=== PATIENT | male | born 1950 | race Caucasian/White ===

== ENCOUNTER → 2021-05-04 | Outpatient (CLI) | payer MEDICARE ==
--- NOTE | 2021-05-04 16:11 | US ---
EXAMINATION TYPE: US thyroid st tissue head/neck DATE OF EXAM: 05/04/2021 COMPARISON: NONE CLINICAL HISTORY: E03.9 HYPOTHYROID. Hypothyroid with superintendent terminal use of thyroid medication, with no hi story of thyroid surgeries or biopsies GLAND SIZE: Right Lobe: 2.7 x 1.8 x 1.4 cm Overall Parenchyma: heterogenous Left Lobe: 2.9 x 1.3 x 1.1 cm Overall Parenchyma: heterogeneous Isthmus Thickness: Limited NODULES RIGHT: # of nodules measured on right: 0 LEFT: # of nodules measured on left: 0 ISTHMUS: # of nodules measured in the isthmus: 0 Bilateral neck scanned, no evidence of lymphadenopathy. Limited exam IMPRESSION: 1. No suspicious thyroid nodules.
== END | disposition home or self-care (01) ==
LOC: RADUSWWP 14:45
PROVIDERS: ATTEND Internal Medicine
DX: E03.9 Hypothyroidism, unspecified (principal)
CPT/HCPCS: 76536

== ENCOUNTER 2023-02-01 23:52 | Observation (INO) | payer MEDICARE ==
[2023-02-02] MEDS ORDERED: NITROGLYCERIN SL TABS 0.4 MG TAB SUBLINGUAL STA (00:23)
[2023-02-02] MEDS ORDERED: NITROGLYCERIN OINT 1 INCH/GM PACKET TOPICAL STA (00:23)
[2023-02-02] MEDS ORDERED: ASPIRIN 81 MG PO STA (00:23)
[2023-02-02 00:39] LABS: ALT 89 U/L (4-49); AST 97 U/L (17-59); African American GFR (CKD) 71 (>60 ml/min/1.73 sqM); Albumin 3.7 g/dL (3.5-5.0); Alkaline Phosphatase 115 U/L (38-126); Anion Gap 9 mmol/L; Blood Urea Nitrogen 22 mg/dL (9-20); Calcium 9.3 mg/dL (8.4-10.2); Carbon Dioxide 21 mmol/L (22-30); Chloride 109 mmol/L (98-107); Glucose 133 mg/dL (74-99); Magnesium 1.9 mg/dL (1.6-2.3); Non-African American GFR(CKD) 61 (>60 ml/min/1.73 sqM); Potassium 3.8 mmol/L (3.5-5.1); Sodium 139 mmol/L (137-145); Total Bilirubin 1.2 mg/dL (0.2-1.3); Total Protein 7.3 g/dL (6.3-8.2)
[2023-02-02 00:45] LABS: Prothrombin Time 10.7 sec (9.0-12.0)
[2023-02-02 00:47] LABS: NT-Pro-B-Type Natriuretic Pept 10400 pg/mL
[2023-02-02 00:48] LABS: Basophils % (A) 0 %; Eosinophils # (A) 0.4 k/uL (0-0.7); Eosinophils % (A) 3 %; HGB 15.1 gm/dL (13.0-17.5); Lymphocytes # (A) 1.2 k/uL (1.0-4.8); Lymphocytes % (A) 10 %; MCHC 32.8 g/dL (31.0-37.0); MCV 97.3 fL (80.0-100.0); Mean Platelet Volume 8.7; Monocytes # (A) 0.7 k/uL (0-1.0); Monocytes % (A) 6 %; Neutrophils # (A) 9.1 k/uL (1.3-7.7); Neutrophils % (A) 79 %; Platelet Count 239 k/uL (150-450); RBC 4.73 m/uL (4.30-5.90); RDW 14.3 % (11.5-15.5); WBC 11.4 k/uL (3.8-10.6)
[2023-02-02] MEDS ORDERED: FUROSEMIDE 10 MG/ML 4 ML VIAL IV STA (01:00)
[2023-02-02] MEDS ORDERED: FUROSEMIDE 10 MG/ML 4 ML VIAL IV SCH ×2 (04:15→17:00)
--- NOTE | 2023-02-02 04:16 | P.HPIM ---
History of Present Illness H&P Date: 02/02/23 Patient is a 72-year-old male with a PMH of CHF (unknown type), status post AICD placement, A. fib not on anticoagulation (unknown reason), marijuana abuse, hypertension, and hyperlipidemia who presents to the emergency room with complaints of shortness of breath and diaphoresis. Patient reports that a friend of his recently suddenly from an [place]. He reports that throughout the day today, he felt chest congestion with mild shortness of breath and cough productive of whitish phlegm but then developed an episode of vague chest discomfort and diaphoresis, which prompted him to come to the emergency room. Reports that the pain was nonradiating with no alleviating or exacerbating features. Patient reports feeling significantly better and essentially back at his baseline at the time of interview. Upon arrival, the patient's vitals were BP 197/122 with pulse 111. Chest x-ray as reviewed with the ED provider revealed pulmonary venous congestion and cardiomegaly. EKG revealed A. fib at 99 bpm with left axis deviation and left bundle branch block as reviewed by me. No prior EKGs available for comparison. Laboratory evaluation was remarkable for troponin 0.037, proBNP 10,400, AST 97, ALT 89, and leukocytosis of 11.4. ED documentation reviewed and case discussed with ED provider. Review of systems: Pertinent positives and negatives as discussed in HPI, a complete review of systems was performed and all other systems are negative. Physical examination: Vital signs reviewed General: non toxic, no distress, appears at stated age, obese Derm: no unusual rashes/lesions, warm Head: atraumatic, normocephalic, symmetric Eyes: EOMI, no lid lag, anicteric sclera, pupils equal round reactive to light ENT: Nose and ears atraumatic Neck: No cervical lymphadenopathy, trachea midline, supple Mouth: no lip lesion, mucus membranes moist Cardiovascular: S1S2 reg, no murmur, positive dorsalis pedis pulse bilateral, no edema Lungs: Mild basilar rales, no accessory muscle use Abdominal: soft, nontender to palpation, no guarding Ext: muscle strength 5 out of 5 in all 4 extremities grossly, no gross muscle atrophy, no contractures, Neuro: CN II-XI grossly intact, no gross focal neuro deficits Psych: Alert, oriented, appropriate affect Assessment: Acute CHF exacerbation Elevated troponin, likely due to acute CHF Abnormal LFTs Chronic conditions: A. fib, hypertension, hyperlipidemia Imaging: Upon arrival, the patient's vitals were BP 197/122 with pulse 111. Chest x-ray as reviewed with the ED provider revealed pulmonary venous congestion and cardiomegaly. Data Review: Laboratory evaluation was remarkable for troponin 0.037, proBNP 10,400, AST 97, ALT 89, and leukocytosis of 11.4. Plan: Continue with Lasix 40 mg IV every 12 hourly Cardiology consult Cardiac monitoring Trend troponin Intake/output, daily weights Monitor LFTs Echocardiogram Resume home medications once reconciled S/p ASA 324 mg in ED DVT prophylaxis: Lovenox subcu The patient is admitted with an anticipated greater than 2 midnight stay for evaluation of CHF CODE STATUS: Full Code Discussed with: Patient Anticipated discharge place: Home Past Medical History Past Medical History: Hyperlipidemia, Hypertension, Myocardial Infarction ([place]) History of Any Multi-Drug Resistant Organisms: None Reported Past Surgical History: Coronary Bypass/CABG, Heart Catheterization Past Psychological History: No Psychological Hx Reported Smoking Status: Never smoker Past Alcohol Use History: None Reported Past Drug Use History: Marijuana Medications and Allergies Allergies Allergy/AdvReac Type Severity Reaction Status Date / Time No Known Allergies Allergy Verified 02/01/23 23:56 Physical Exam Vitals: Vital Signs Temp Pulse Resp BP Pulse Ox 02/02/23 00:58 83 20 138/85 92 L 02/01/23 23:53 97.8 F 111 H 20 197/122 97 Intake and Output 02/01/23 02/01/23 02/02/23 14:59 22:59 06:59 Other: Weight 100.698 kg Results CBC & Chem 7: 02/02/23 00:22 02/02/23 00:22 Labs: Abnormal Lab Results - Last 24 Hours (Table) 02/02/23 02/02/23 02/02/23 Range/Units 00:22 00:22 00:22 WBC 11.4 H (3.8-10.6) k/uL Neutrophils # 9.1 H (1.3-7.7) k/uL Chloride 109 H (98-107) mmol/L Carbon Dioxide 21 L (22-30) mmol/L BUN 22 H (9-20) mg/dL Glucose 133 H (74-99) mg/dL AST 97 H (17-59) U/L ALT 89 H (4-49) U/L Troponin I 0.037 H* (0.000-0.034) ng/mL
--- NOTE | 2023-02-02 04:46 | XR ---
EXAM: XR Chest, 1 View CLINICAL HISTORY: Dyspnea. TECHNIQUE: Frontal view of the chest. COMPARISON: No relevant prior studies available. FINDINGS: Status post sternotomy and CABG. Heart is enlarged. Diffuse interstitial prominence compatible with CHF. Small left pleural effusion. No pneumothorax. Bones are osteopenic. IMPRESSION: Cardiomegaly. CHF. Small left pleural effusion.
--- NOTE | 2023-02-02 05:57 | ED ---
SOB HPI - General Chief Complaint: Chest Pain Stated Complaint: SOB, Chest pain Time Seen by Provider: 02/02/23 00:14 Source: patient Mode of arrival: ambulatory Limitations: no limitations - History of Present Illness Initial Comments: This patient is 72-year-old man who presents evaluation of shortness of breath. The patient states that the symptoms had come on while he was at rest. The patient was watching television. He noticed that he was starting to become progressively more short of breath. He also felt like his chest was tight. At one point he was sweaty. The patient was concerned because he had severe shortness of breath associated with previous heart attack. He states that after he had been placed on the oxygen he is feeling much better. Patient denies fever or chills. No productive cough. No shekhar chest pain. No vomiting MD Complaint: shortness of breath Onset/Timin -: hour(s) Consistency: other (Improving) Improves With: nothing Worsens With: lying flat Associated Symptoms: orthopnea, nausea/vomiting - Related Data Home Oxygen Therapy: No Home Medications Medication Instructions Recorded Confirmed Amiodarone [Cordarone] 100 mg PO DAILY 02/02/23 02/02/23 Aspirin 81 mg PO DAILY 02/02/23 02/02/23 Clopidogrel [Plavix] 75 mg PO DAILY 02/02/23 02/02/23 Colchicine [Colcrys] 0.6 mg PO DAILY 02/02/23 02/02/23 Furosemide [Lasix] 40 mg PO BID 02/02/23 02/02/23 Levothyroxine Sodium [Synthroid] 175 mcg PO DAILY 02/02/23 02/02/23 busPIRone HCl [Buspar] 5 mg PO BID 02/02/23 02/02/23 Previous Rx's Medication Instructions Recorded carvediloL [Coreg] 6.25 mg PO BID-W/MEALS #60 tab 02/03/23 lisinopriL [Zestril] 10 mg PO BID #60 tab 02/03/23 Allergies Allergy/AdvReac Type Severity Reaction Status Date / Time No Known Allergies Allergy Verified 02/02/23 07:03 Review of Systems ROS Statement: Those systems with pertinent positive or pertinent negative responses have been documented in the HPI. ROS Other: All systems not noted in ROS Statement are negative. Constitutional: Denies: fever, chills, weakness ENT: Denies: congestion Respiratory: Reports: dyspnea. Denies: wheezes, hemoptysis Cardiovascular: Reports: palpitations, orthopnea. Denies: chest pain, edema, syncope Gastrointestinal: Reports: nausea. Denies: abdominal pain, vomiting, diarrhea, melena, hematochezia Genitourinary: Denies: dysuria, hematuria Musculoskeletal: Denies: back pain Skin: Denies: rash Neurological: Denies: headache, weakness Psychiatric: Reports: anxiety Past Medical History Past Medical History: Hyperlipidemia, Hypertension, Myocardial Infarction ([place]) History of Any Multi-Drug Resistant Organisms: None Reported Past Surgical History: Coronary Bypass/CABG, Heart Catheterization Past Psychological History: No Psychological Hx Reported Smoking Status: Never smoker Past Alcohol Use History: None Reported Past Drug Use History: Marijuana General Exam Limitations: no limitations General appearance: alert, in no apparent distress Head exam: Present: atraumatic, normocephalic Eye exam: Present: normal appearance. Absent: scleral icterus, conjunctival injection Neck exam: Present: normal inspection Respiratory exam: Present: wheezes, rales. Absent: rhonchi, stridor, accessory muscle use Cardiovascular Exam: Present: tachycardia, irregular rhythm, normal heart sounds, systolic murmur. Absent: diastolic murmur, rubs, gallop GI/Abdominal exam: Present: soft. Absent: distended, tenderness, guarding, rebound, rigid, mass Extremities exam: Present: normal inspection, normal capillary refill. Absent: pedal edema, calf tenderness Back exam: Present: normal inspection. Absent: CVA tenderness (R), CVA tenderness (L) Neurological exam: Present: alert Skin exam: Present: warm, dry, intact, normal color. Absent: rash Course Vital Signs 02/01/23 02/02/23 02/02/23 23:53 00:58 01:10 Temperature 97.8 F Pulse Rate 111 H 83 83 Pulse Rate [ [employer] ] Pulse Rate [ Pulse Oximetery ] Respiratory 20 20 33 H Rate Blood Pressure 197/122 138/85 125/96 Blood Pressure [Left Arm] Blood Pressure [Right Radial Artery] O2 Sat by Pulse 97 92 L 92 L Oximetry 02/02/23 02/02/23 02/02/23 01:40 02:10 03:10 Temperature Pulse Rate 74 75 76 Pulse Rate [ [employer] ] Pulse Rate [ Pulse Oximetery ] Respiratory 18 17 23 Rate Blood Pressure 135/106 148/91 151/115 Blood Pressure [Left Arm] Blood Pressure [Right Radial Artery] O2 Sat by Pulse 94 L 95 96 Oximetry 02/02/23 02/02/23 02/02/23 03:40 04:10 04:40 Temperature Pulse Rate 72 72 77 Pulse Rate [ [employer] ] Pulse Rate [ Pulse Oximetery ] Respiratory 20 18 14 Rate Blood Pressure 140/92 159/147 147/100 Blood Pressure [Left Arm] Blood Pressure [Right Radial Artery] O2 Sat by Pulse 98 99 98 Oximetry 02/02/23 02/02/23 02/02/23 04:50 05:00 05:20 Temperature Pulse Rate 71 78 72 Pulse Rate [ [employer] ] Pulse Rate [ Pulse Oximetery ] Respiratory 18 15 20 Rate Blood Pressure 161/136 165/102 150/97 Blood Pressure [Left Arm] Blood Pressure [Right Radial Artery] O2 Sat by Pulse 98 96 98 Oximetry 02/02/23 02/02/23 02/02/23 05:40 05:49 06:00 Temperature Pulse Rate 76 80 71 Pulse Rate [ [employer] ] Pulse Rate [ Pulse Oximetery ] Respiratory 15 19 12 Rate Blood Pressure 138/101 147/127 147/127 Blood Pressure [Left Arm] Blood Pressure [Right Radial Artery] O2 Sat by Pulse 98 98 99 Oximetry 02/02/23 02/02/23 02/02/23 06:20 08:00 11:17 Temperature 98.2 F Pulse Rate 71 Pulse Rate [ [employer] ] Pulse Rate [ 73 70 Pulse Oximetery ] Respiratory 20 20 18 Rate Blood Pressure 131/111 Blood Pressure 151/104 136/84 [Left Arm] Blood Pressure [Right Radial Artery] O2 Sat by Pulse 96 98 96 Oximetry 02/02/23 02/02/23 02/03/23 15:11 20:00 00:00 Temperature 98 F 97.9 F 98.3 F Pulse Rate Pulse Rate [ 98 85 [employer] ] Pulse Rate [ 80 98 85 Pulse Oximetery ] Respiratory 18 13 15 Rate Blood Pressure Blood Pressure 127/95 [Left Arm] Blood Pressure 125/88 132/100 [Right Radial Artery] O2 Sat by Pulse 96 97 96 Oximetry 02/03/23 02/03/23 02/03/23 04:00 08:31 09:10 Temperature Pulse Rate Pulse Rate [ 82 83 [employer] ] Pulse Rate [ 82 70 Pulse Oximetery ] Respiratory 17 17 Rate Blood Pressure Blood Pressure 174/101 137/88 [Left Arm] Blood Pressure 128/91 [Right Radial Artery] O2 Sat by Pulse 98 99 96 Oximetry Medical Decision Making - Medical Decision Making Patient is 72-year-old man coming to have evaluation for acute onset of dyspnea. On arrival his exam is consistent with congestive heart failure exacerbation/pulmonary edema. He is markedly hypertensive. The patient did have rapid improvement after being started on oxygen, nitrates, aspirin. He rapidly became asymptomatic. The chest x-ray does show congestive heart failure exacerbation as interpreted by myself. Was pt. sent in by a medical professional or institution (, PA, TELECOMMUNICATIONS ENGINEER, urgent care, hospital, or [facility]...) When possible be specific @ -[No] Did you speak to anyone other than the patient for history (EMS, parent, family, police, friend...)? What history was obtained from this source @ -[No] Did you review nursing and triage notes (agree or disagree)? Why? @ -[I reviewed and agree with nursing and triage notes] Were old charts reviewed (outside hosp., previous admission, EMS record, old EKG, old radiological studies, urgent care reports/EKG's, [facility] records)? Report findings @ -[No old charts were reviewed] Differential Diagnosis (chest pain, altered mental status, abdominal pain women, abdominal pain men, vaginal bleeding, weakness, fever, dyspnea, syncope, headache, dizziness, GI bleed, back pain, seizure, CVA, palpatations, mental health, musculoskeletal)? @ -[Differential Dyspnea: Coronary syndrome, arrhythmia, tamponade, asthma, COPD, pulmonary embolism, pneumonia, pneumothorax, pulmonary effusion, anaphylaxis, diabetic ketoacidosis, flailed chest, pulmonary contusion, diaphragmatic rupture, anemia, neuromuscular, this is not meant to be an all-inclusive list. EKG interpreted by me (3pts min.). @ -[I interpreted As above] X-rays interpreted by me (1pt min.). @ -[I interpreted as above CT interpreted by me (1pt min.). @ -[None done] U/S interpreted by me (1pt. min.). @ -[None done] What testing was considered but not performed or refused? (CT, X-rays, U/S, labs)? Why? @ -[None] What meds were considered but not given or refused? Why? @ -[None] Did you discuss the management of the patient with other professionals (professionals i.e. , PA, TELECOMMUNICATIONS ENGINEER, lab, RT, psych nurse, social media marketing specialist, appraiser, teacher, parking regulation enforcement officer, transplant case manager)? Give summary @ -[No] Was smoking cessation discussed for >3mins.? @ -[No] Was critical care preformed (if so, how long)? @ -[No] Were there social determinants of health that impacted care today? How? (Homelessness, low income, unemployed, alcoholism, drug addiction, transportat ion, low edu. Level, literacy, decrease access to med. care, nursing home, rehab)? @ -[No] Was there de-escalation of care discussed even if they declined (Discuss DNR or withdrawal of care, Hospice)? DNR status @ -[No] What co-morbidities impacted this encounter? (DM, HTN, Smoking, COPD, CAD, Cancer, CVA, ARF, Chemo, Hep., AIDS, mental health diagnosis, sleep apnea, morbid obesity)? @ -[None] Was patient admitted / discharged? Hospital course, mention meds given and route, prescriptions, significant lab abnormalities, going to OR and other pertinent info. @ -[Patient is admitted with CHF exacerbation to have further evaluation and treatment, including cardiology consultation Undiagnosed new problem with uncertain prognosis? @ -[No] Drug Therapy requiring intensive monitoring for toxicity (Heparin, Nitro, I nsulin, Cardizem)? @ -[No] Were any procedures done? @ -[No] Diagnosis/symptom? @ -[Acute exacerbation of CHF Elevated troponin I Acute, or Chronic, or Acute on Chronic? @ -[ Uncomplicated (without systemic symptoms) or Complicated (systemic symptoms)? @ -[Complicated Side effects of treatment? @ -[No] Exacerbation, Progression, or Severe Exacerbation? @ -[No] Poses a threat to life or bodily function? How? (Chest pain, [place], [place], pneumonia, PE, COPD, DKA, ARF, appy, cholecystitis, CVA, Diverticulitis, Homicidal, Suicidal, threat to staff... and all critical care pts) @ -[Yes untreated decompensated congestive heart failure could rapidly progress respiratory failure/ - Lab Data Result diagrams: 02/02/23 06:14 02/03/23 07:23 Lab Results 02/02/23 02/02/23 02/02/23 Range/Units 00:22 00:22 00:22 WBC 11.4 H (3.8-10.6) k/uL RBC 4.73 (4.30-5.90) m/uL Hgb 15.1 (13.0-17.5) gm/dL Hct 46.0 (39.0-53.0) % MCV 97.3 (80.0-100.0) fL MCH 32.0 (25.0-35.0) pg MCHC 32.8 (31.0-37.0) g/dL RDW 14.3 (11.5-15.5) % Plt Count 239 (150-450) k/uL MPV 8.7 Neutrophils % 79 % Lymphocytes % 10 % Monocytes % 6 % Eosinophils % 3 % Basophils % 0 % Neutrophils # 9.1 H (1.3-7.7) k/uL Lymphocytes # 1.2 (1.0-4.8) k/uL Monocytes # 0.7 (0-1.0) k/uL Eosinophils # 0.4 (0-0.7) k/uL Basophils # 0.0 (0-0.2) k/uL PT 10.7 (9.0-12.0) sec INR 1.0 (<1.2) APTT 26.0 (22.0-30.0) sec Sodium 139 (137-145) mmol/L Potassium 3.8 (3.5-5.1) mmol/L Chloride 109 H (98-107) mmol/L Carbon Dioxide 21 L (22-30) mmol/L Anion Gap 9 mmol/L BUN 22 H (9-20) mg/dL Creatinine 1.17 (0.66-1.25) mg/dL Est GFR (CKD-EPI)AfAm 71 (>60 ml/min/1.73 sqM) Est GFR (CKD-EPI)NonAf 61 (>60 ml/min/1.73 sqM) Glucose 133 H (74-99) mg/dL Plasma Lactic Acid Miguel (0.7-2.0) mmol/L Calcium 9.3 (8.4-10.2) mg/dL Magnesium 1.9 (1.6-2.3) mg/dL Total Bilirubin 1.2 (0.2-1.3) mg/dL AST 97 H (17-59) U/L ALT 89 H (4-49) U/L Alkaline Phosphatase 115 (38-126) U/L Troponin I (0.000-0.034) ng/mL NT-Pro-B Natriuret Pep 05363 pg/mL Total Protein 7.3 (6.3-8.2) g/dL Albumin 3.7 (3.5-5.0) g/dL 02/02/23 02/02/23 Range/Units 00:22 00:22 WBC (3.8-10.6) k/uL RBC (4.30-5.90) m/uL Hgb (13.0-17.5) gm/dL Hct (39.0-53.0) % MCV (80.0-100.0) fL MCH (25.0-35.0) pg MCHC (31.0-37.0) g/dL RDW (11.5-15.5) % Plt Count (150-450) k/uL MPV Neutrophils % % Lymphocytes % % Monocytes % % Eosinophils % % Basophils % % Neutrophils # (1.3-7.7) k/uL Lymphocytes # (1.0-4.8) k/uL Monocytes # (0-1.0) k/uL Eosinophils # (0-0.7) k/uL Basophils # (0-0.2) k/uL PT (9.0-12.0) sec INR (<1.2) APTT (22.0-30.0) sec Sodium (137-145) mmol/L Potassium (3.5-5.1) mmol/L Chloride (98-107) mmol/L Carbon Dioxide (22-30) mmol/L Anion Gap mmol/L BUN (9-20) mg/dL Creatinine (0.66-1.25) mg/dL Est GFR (CKD-EPI)AfAm (>60 ml/min/1.73 sqM) Est GFR (CKD-EPI)NonAf (>60 ml/min/1.73 sqM) Glucose (74-99) mg/dL Plasma Lactic Acid Miguel 1.2 (0.7-2.0) mmol/L Calcium (8.4-10.2) mg/dL Magnesium (1.6-2.3) mg/dL Total Bilirubin (0.2-1.3) mg/dL AST (17-59) U/L ALT (4-49) U/L Alkaline Phosphatase (38-126) U/L Troponin I 0.037 H* (0.000-0.034) ng/mL NT-Pro-B Natriuret Pep pg/mL Total Protein (6.3-8.2) g/dL Albumin (3.5-5.0) g/dL - EKG Data -: EKG Interpreted by Tx EKG shows normal: axis (Left axis deviation), intervals (Normal), QRS complexes ((Bundle-branch block pattern) Interpretation: other (Underlying rhythm appears to be atrial flutter fib. There are PVCs. The rate is 99 bpm) Disposition Clinical Impression: CHF (congestive heart failure), Hypertensive emergency Disposition: ADMITTED IP TO THIS HOSP Condition: Stable Is patient prescribed a controlled substance at d/c from ED?: No
[2023-02-02 06:30] LABS: HCT 50.6 % (39.0-53.0); HGB 16.5 gm/dL (13.0-17.5); MCH 31.6 pg (25.0-35.0); MCHC 32.7 g/dL (31.0-37.0); MCV 96.7 fL (80.0-100.0); Mean Platelet Volume 8.2; Platelet Count 274 k/uL (150-450); RBC 5.23 m/uL (4.30-5.90); WBC 8.1 k/uL (3.8-10.6)
[2023-02-02 06:39] LABS: ALT 99 U/L (4-49); AST 81 U/L (17-59); African American GFR (CKD) 81 (>60 ml/min/1.73 sqM); Albumin 4.4 g/dL (3.5-5.0); Alkaline Phosphatase 127 U/L (38-126); Anion Gap 11 mmol/L; Blood Urea Nitrogen 21 mg/dL (9-20); Calcium 9.8 mg/dL (8.4-10.2); Carbon Dioxide 22 mmol/L (22-30); Chloride 109 mmol/L (98-107); Glucose 111 mg/dL (74-99); Non-African American GFR(CKD) 70 (>60 ml/min/1.73 sqM); Potassium 3.9 mmol/L (3.5-5.1); Sodium 142 mmol/L (137-145); Total Bilirubin 1.7 mg/dL (0.2-1.3); Total Protein 8.3 g/dL (6.3-8.2)
[2023-02-02] MEDS: carvediloL 3.125 MG TAB PO SCH ×2 (07:58→16:47)
[2023-02-02] MEDS: LEVOTHYROXINE 75 MCG TAB PO SCH (07:58)
[2023-02-02] MEDS: LEVOTHYROXINE 100 MCG TAB PO SCH (07:58)
[2023-02-02] MEDS: ENOXAPARIN 40 MG/0.4 ML SYRINGE SQ SCH (07:58)
[2023-02-02] MEDS: FUROSEMIDE 40 MG TAB PO SCH ×2 (07:58→15:07)
[2023-02-02] MEDS: lisinopriL 10 MG TAB PO SCH ×2 (07:58→21:25)
[2023-02-02] MEDS: CLOPIDOGREL 75 MG TAB PO SCH (07:58)
[2023-02-02] MEDS: ASPIRIN 81 MG PO SCH (07:58)
[2023-02-02] MEDS: AMIODARONE 100 MG TAB PO SCH (08:04)
--- NOTE | 2023-02-02 12:00 | CA ---
Transthoracic Echo Report Name: Cholo Love Age: 72 Gender: M : 1950 Exam Date: 02/02/2023 07:53 Exam Location: [facility] Ht (in): 69 Wt (lb): 222 Ordering Physician: Susan Marley MD Attending/Referring Phys: Dry Cleaner Presser Tatiana You RDCS Procedure CPT: Indications: chf Cardiac Hx: Technical Quality: Technically difficult study Contrast 1: Lumason Total Dose (mL): 4 Contrast 2: Total Dose (mL): MEASUREMENTS (Male / Female) Normal Values 2D ECHO LV Diastolic Diameter PLAX 5.2 cm 4.2 - 5.9 / 3.9 - 5.3 cm LV Systolic Diameter PLAX 4.2 cm IVS Diastolic Thickness 1.9 cm 0.6 - 1.0 / 0.6 - 0.9 cm LVPW Diastolic Thickness 1.6 cm 0.6 - 1.0 / 0.6 - 0.9 cm LV Relative Wall Thickness 0.7 LVOT Diameter 1.7 cm LV Diastolic Volume MOD BP 183.8 cm??? 67 - 155 / 56 - 104 cm??? LV Systolic Volume MOD BP 123.5 cm??? 22 - 58 / 19 - 49 cm??? LV Ejection Fraction MOD BP 32.8 % >= 55 % LV Cardiac Index MOD BP 2201.5 cm???/min???m??? LV Diastolic Volume MOD 4C 179.4 cm??? LV Systolic Volume MOD 4C 117.3 cm??? LV Ejection Fraction MOD 4C 34.6 % LV Cardiac Index MOD 4C 2266.6 cm???/min???m??? LV Diastolic Length 4C 8.0 cm LV Systolic Length 4C 7.3 cm LV Diastolic Volume MOD 2C 172.7 cm??? LV Systolic Volume MOD 2C 113.6 cm??? LV Ejection Fraction MOD 2C 34.2 % LV Cardiac Index MOD 2C 2156.8 cm???/min???m??? LV Diastolic Length 2C 8.8 cm LV Systolic Length 2C 8.5 cm LA Volume 104.0 cm??? 18 - 58 / 22 - 52 cm??? M-MODE Aortic Root Diameter MM 3.6 cm LA Systolic Diameter MM 5.9 cm LA Ao Ratio MM 1.6 DOPPLER AV Peak Velocity 369.4 cm/s AV Peak Gradient 54.6 mmHg AV Mean Velocity 301.2 cm/s AV Mean Gradient 38.7 mmHg AV Velocity Time Integral 77.9 cm LVOT Peak Velocity 91.0 cm/s LVOT Peak Gradient 3.3 mmHg LVOT Velocity Time Integral 16.9 cm LVOT Stroke Volume 38.9 cm??? LVOT Stroke Volume Index 18.0 ml/m??? LVOT Cardiac Index 1417.8 cm???/min???m??? AV Area Cont Eq vti 0.5 cm??? AV Area Cont Eq pk 0.6 cm??? MV Area PHT 3.8 cm??? Mitral E Point Velocity 74.2 cm/s Mitral A Point Velocity 0.7 cm/s Mitral E to A Ratio 107.9 MV Deceleration Time 199.8 ms MV E' Velocity 3.7 cm/s Mitral E to MV E' Ratio 20.1 TR Peak Velocity 247.6 cm/s TR Peak Gradient 24.5 mmHg Right Ventricular Systolic Press 36.0 mmHg FINDINGS Left Ventricle Severely increased septal wall thickness. Moderately increased left ventricular diastolic volume. Severely increased left ventricular systolic volume. Moderately decreased left ventricular ejection fraction. Abnormal (paradoxical) septal motion consistent with postoperative state. Moderately reduced global left ventricular systolic function. Left ventricular ejection fraction is estimated at 30-35 %. Right Ventricle Normal right ventricular size and function. Mild pulmonary hypertension. Right Atrium Normal right atrial size. Left Atrium Severely increased left atrial volume. Mildly increased left atrial area. Mitral Valve Mild mitral annular calcification. Moderate mitral regurgitation. Aortic Valve Severe low-flow low-gradient aortic stenosis with a peak velocity of 3.7 m/s, peak gradient 55 mmHg, mean gradient 39 mmHg, and estimated aortic valve area of .6 cm??? with a stroke volume index of 18 cc/m2. No aortic regurgitation. Tricuspid Valve Structurally normal tricuspid valve. Mild tricuspid regurgitation. Pulmonic Valve Structurally normal pulmonic valve. Trace pulmonic regurgitation. Pericardium No pericardial effusion. Echo free space anterior to the right ventricle likely represents a fat pad. Aorta Normal size aortic root and proximal ascending aorta. CONCLUSIONS Left ventricle is enlarged with global decrease in contractility estimated ejection fraction of about 30%. Right ventricle is prominent. There is mild pulmonary hypertension. Aortic valve leaflets are sclerosed calcified with restriction increased gradient noted as above. Mild mitral regurgitation and moderate tricuspid regurgitation no pulmonary hypertension probable fat pad. Previewed by: Dr. Joe Carrera MD (Electronically Signed) Final Date: 02 February 2023 12:00
--- NOTE | 2023-02-02 12:37 | P.CRDCN ---
History of Present Illness Consult date: 02/02/23 Reason for Consult (text): Hypertensive emergency, CHF History of present illness: History of present illness: This is a 72-year-old male with past medical history of hypertension, hyperlipidemia, coronary artery disease with previous CABG and cardiac catheterization, history of watchman's device, persistent atrial fibrillation severe aortic stenosis. We have been asked to evaluate the patient for hypertensive emergency and CHF. Patient follows with Dr. Wilson. He presented to the hospital due to shortness of breath while at rest and progressively worsening. He also had some chest tightness. He has no chest tightness at this time and shortness of breath is improved. Patient has been started on IV Lasix and has had good urine output. He denies any shortness of breath or chest pain at the time of this evaluation. He is normally on Lasix 40 mg twice daily at home. He is very upset because he has not received any of his home cardiac medications. EKG atrial fibrillation with PVCs, left bundle branch block Chest x-ray: Cardiomegaly. CHF. Small left pleural effusion Echocardiogram reveals EF of 30%, mild pulmonary hypertension mild mitral regurgitation, moderate tricuspid regurgitation, no pulmonary hypertension. Aortic valve as severe low flow low gradient aortic stenosis WBC 8.1, hemoglobin 16.5, platelet count 274. Sodium 142, potassium 3.9, BUN 21 creatinine 1.06. Total bilirubin 1.7. AST 81, ALT 99, alkaline phosphatase 127. Troponin 0.037 and 0.068. Magnesium 1.9. Home cardiac medications: Amiodarone 100 mg daily, aspirin 81 mg daily, Plavix 75 mg daily, Lasix 40 mg twice daily, lisinopril 5 mg daily, Toprol-XL 50 mg daily, levothyroxine 175 g daily. Review Of Systems: At the time of my evaluation: Constitutional: No fever, no chills. No weakness, fatigue or lethargy. EENT: No headache. No dizziness. Lungs: + shortness of breath resolved, cough, no sputum production. No wheezing. Cardiovascular: No chest pain, no lower extremity edema. No palpitations. No paroxysmal nocturnal dyspnea. No orthopnea. No lightheadedness or dizziness. No syncopal episodes. Abdominal: No abdominal pain. No nausea, vomiting. No diarrhea. No constipation. No bloody or tarry stools. Genitourinary: No dysuria.. No urinary retention. Musculoskeletal: No myalgias. No muscle weakness, no frequent falls. No back pain. No neck pain. Integumentary: No wounds. No rash. No unusual bruising. Neurologic: No aphasia. No facial droop. No change in mentation. No head injury. No headache. Physical examination: Gen: This is a 72-year-old male. His resting in a chair in the ER and appears to be comfortable. VS: reviewed blood pressure 151/104, heart rate in the 70s, pulse ox 90% on 2 L, afebrile HEENT: Head is atraumatic, normocephalic. Pupils equal, round. Sclerae is anicteric. NECK: Supple. No JVD. LUNGS: Clear to auscultation. No wheezes or rhonchi. No intercostal retracti ons. HEART: Regular rate and rhythm. Systolic murmur right sternal border. ABDOMEN: Soft No tenderness. EXTREMITIES: No pedal edema. No calf tenderness. NEUROLOGICAL: Patient is awake, alert and oriented x3. Assessment: Acute systolic heart failure Hypertensive emergency Severe aortic stenosis Status post watchman device Persistent atrial fibrillation Coronary artery disease with previous CABG and cardiac catheterization Plan: Resume patient's home cardiac medications with the following changes: Discontinue Toprol-XL and place patient on Coreg 3.125 mg twice daily and increase lisinopril to 10 mg twice daily Discontinue IV Lasix and place patient on his home Lasix 40 mg twice daily Monitor blood pressure closely Further recommendations to follow based upon clinical course Thank you kindly for this consultation. Nurse practitioner note has been reviewed, I agree with documented findings and plan of care. Patient was seen and examined. Past Medical History Past Medical History: Hyperlipidemia, Hypertension, Myocardial Infarction ([place]) History of Any Multi-Drug Resistant Organisms: None Reported Past Surgical History: Coronary Bypass/CABG, Heart Catheterization Past Psychological History: No Psychological Hx Reported Smoking Status: Never smoker Past Alcohol Use History: None Reported Past Drug Use History: Marijuana Medications and Allergies Home Medications Medication Instructions Recorded Confirmed Type Amiodarone [Cordarone] 100 mg PO DAILY 02/02/23 02/02/23 History Aspirin 81 mg PO DAILY 02/02/23 02/02/23 History Clopidogrel [Plavix] 75 mg PO DAILY 02/02/23 02/02/23 History Colchicine [Colcrys] 0.6 mg PO DAILY 02/02/23 02/02/23 History Furosemide [Lasix] 40 mg PO BID 02/02/23 02/02/23 History Levothyroxine Sodium [Synthroid] 175 mcg PO DAILY 02/02/23 02/02/23 History Metoprolol Succinate [Toprol XL] 50 mg PO DAILY 02/02/23 02/02/23 History busPIRone HCl [Buspar] 5 mg PO BID 02/02/23 02/02/23 History lisinopriL [Zestril] 5 mg PO DAILY 02/02/23 02/02/23 History Allergies Allergy/AdvReac Type Severity Reaction Status Date / Time No Known Allergies Allergy Verified 02/02/23 07:03 Physical Exam Vitals: Vital Signs Temp Pulse Resp BP Pulse Ox 02/02/23 06:20 71 20 131/111 96 02/02/23 06:00 71 12 147/127 99 02/02/23 05:49 80 19 147/127 98 02/02/23 05:40 76 15 138/101 98 02/02/23 05:20 72 20 150/97 98 02/02/23 05:00 78 15 165/102 96 02/02/23 04:50 71 18 161/136 98 02/02/23 04:40 77 14 147/100 98 02/02/23 04:10 72 18 159/147 99 02/02/23 03:40 72 20 140/92 98 02/02/23 03:10 76 23 151/115 96 02/02/23 02:10 75 17 148/91 95 02/02/23 01:40 74 18 135/106 94 L 02/02/23 01:10 83 33 H 125/96 92 L 02/02/23 00:58 83 20 138/85 92 L 02/01/23 23:53 97.8 F 111 H 20 197/122 97 Intake and Output 02/01/23 02/02/23 02/02/23 22:59 06:59 14:59 Output Total 4500 Balance -4500 Output: Urine 4500 Other: Weight 100.698 kg Results 02/02/23 06:14 02/02/23 06:14 Cardiac Enzymes 02/02/23 02/02/23 02/02/23 Range/Units 00:22 00:22 05:12 AST 97 H (17-59) U/L Troponin I 0.037 H* 0.068 H* (0.000-0.034) ng/mL 02/02/23 Range/Units 06:14 AST 81 H (17-59) U/L Troponin I (0.000-0.034) ng/mL Coagulation 02/02/23 Range/Units 00:22 PT 10.7 (9.0-12.0) sec APTT 26.0 (22.0-30.0) sec CBC 02/02/23 02/02/23 Range/Units 00:22 06:14 WBC 11.4 H 8.1 (3.8-10.6) k/uL RBC 4.73 5.23 (4.30-5.90) m/uL Hgb 15.1 16.5 (13.0-17.5) gm/dL Hct 46.0 50.6 (39.0-53.0) % Plt Count 239 274 (150-450) k/uL Comprehensive Metabolic Panel 02/02/23 02/02/23 Range/Units 00:22 06:14 Sodium 139 142 (137-145) mmol/L Potassium 3.8 3.9 (3.5-5.1) mmol/L Chloride 109 H 109 H (98-107) mmol/L Carbon Dioxide 21 L 22 (22-30) mmol/L BUN 22 H 21 H (9-20) mg/dL Creatinine 1.17 1.06 (0.66-1.25) mg/dL Glucose 133 H 111 H (74-99) mg/dL Calcium 9.3 9.8 (8.4-10.2) mg/dL AST 97 H 81 H (17-59) U/L ALT 89 H 99 H (4-49) U/L Alkaline Phosphatase 115 127 H (38-126) U/L Total Protein 7.3 8.3 H (6.3-8.2) g/dL Albumin 3.7 4.4 (3.5-5.0) g/dL Current Medications Generic Name Dose Route Start Last Admin Trade Name Freq PRN Reason Stop Dose Admin Enoxaparin Sodium 40 mg 02/02/23 09:00 Enoxaparin 40 Mg/0.4 Ml Syringe SQ DAILY KAY Furosemide 40 mg 02/02/23 04:15 02/02/23 04:47 Furosemide 10 Mg/Ml 4 Ml Vial IV 40 mg Q12H KAY Administration Intake and Output 02/01/23 02/02/23 02/02/23 22:59 06:59 14:59 Output Total 4500 Balance -4500 Output: Urine 4500 Other: Weight 100.698 kg 02/02/23 06:14 02/02/23 06:14
[2023-02-02] MEDS: busPIRone HCl 5 MG TAB PO SCH (21:26)
[2023-02-03 05:01] VITALS: RESP 17; TEMP 98.3
[2023-02-03] MEDS: LEVOTHYROXINE 100 MCG TAB PO SCH (06:52)
[2023-02-03] MEDS: LEVOTHYROXINE 75 MCG TAB PO SCH (06:52)
[2023-02-03] MEDS: carvediloL 3.125 MG TAB PO SCH (06:52)
[2023-02-03] MEDS: ENOXAPARIN 40 MG/0.4 ML SYRINGE SQ SCH (08:37)
[2023-02-03] MEDS: CLOPIDOGREL 75 MG TAB PO SCH (08:37)
[2023-02-03] MEDS: busPIRone HCl 5 MG TAB PO SCH (08:37)
[2023-02-03] MEDS: FUROSEMIDE 40 MG TAB PO SCH (08:37)
[2023-02-03] MEDS: ASPIRIN 81 MG PO SCH (08:37)
[2023-02-03] MEDS: lisinopriL 10 MG TAB PO SCH (08:37)
[2023-02-03 08:54] LABS: African American GFR (CKD) 76 (>60 ml/min/1.73 sqM); Anion Gap 7 mmol/L; Blood Urea Nitrogen 23 mg/dL (9-20); Calcium 9.6 mg/dL (8.4-10.2); Carbon Dioxide 30 mmol/L (22-30); Chloride 101 mmol/L (98-107); Glucose 92 mg/dL (74-99); Magnesium 1.9 mg/dL (1.6-2.3); Non-African American GFR(CKD) 66 (>60 ml/min/1.73 sqM); Potassium 4.1 mmol/L (3.5-5.1); Sodium 138 mmol/L (137-145)
[2023-02-03] MEDS: AMIODARONE 100 MG TAB PO SCH (09:06)
[2023-02-03] MEDS ORDERED: carvediloL 3.125 MG TAB PO STA (11:26)
--- NOTE | 2023-02-03 12:31 | P.DS ---
Providers Date of admission: 02/02/23 03:19 Expected date of discharge: 02/03/23 Attending physician: Susan Marley MD Consults: 02/02/23 03:19 Consult Physician Routine Consulting Provider: Jose Carranza Consult Reason/Comments: Hypertensive emergency/CHF Do you want consulting provider notified?: Yes Primary care physician: Raymond Hicks MD Hospital Course: Discharge Diagnosis: Acute systolic CHF exacerbation, EF 30% Hypertensive emergency Severe aortic stenosis Persistent atrial fibrillation status post watchman device History of CAD status post CABG Dyslipidemia Mild transaminitis NSTEMI, Type 2 Leukocytosis, reactive Hospital Course: 72-year-old male with a PMH of systolic CHF, status post AICD placement, A. fib not on anticoagulation status post watchman, marijuana abuse, hypertension, and hyperlipidemia who presents to the emergency room with complaints of shortness of breath and diaphoresis. Upon arrival, the patient's vitals were BP 197/122 with pulse 111. Chest x-ray revealed pulmonary venous congestion and cardiomegaly. EKG revealed A. fib at 99 bpm with left axis deviation and left bundle branch block. No prior EKGs available for comparison. Laboratory evaluation was remarkable for troponin 0.037, proBNP 10,400, AST 97, ALT 89, and leukocytosis of 11.4. Patient was started on IV Lasix. Respiratory function improved. Cardiology consulted. Echocardiogram shows LVEF 30%, mild pulmonary hypertension, severe low flow low gradient aortic stenosis Patient switched to oral diuretics. Metoprolol also switched to Coreg. Lisinopril increased her hypertension. Pending discharge home with close follow-up with cardiology. Patient seen and examined at bedside. Vital signs reviewed and stable. General: nontoxic, no distress, appears at stated age Derm: warm, dry Head: atraumatic, normocephalic, symmetric Eyes: EOMI, no lid lag, anicteric sclera Mouth: no lip lesion, mucus membranes moist Cardiovascular: S1S2 reg, no murmur Lungs: CTA bilateral, no rhonchi, no rales , no accessory muscle use Abdominal: soft, nontender to palpation, no guarding, no appreciable organomegaly Ext: no gross muscle atrophy, no edema, no contractures Neuro: CN II-XI grossly intact, no focal neuro deficits Psych: Alert, oriented, appropriate affect A total of 33 minutes of time were spent preparing this complex discharge summary. Patient was discharged on 02/03/23 at 12:29. Patient Condition at Discharge: Stable Plan - Discharge Summary Discharge Rx Participant: No New Discharge Prescriptions: New carvediloL [Coreg] 6.25 mg PO BID-W/MEALS #60 tab lisinopriL [Zestril] 10 mg PO BID #60 tab Continue Colchicine [Colcrys] 0.6 mg PO DAILY Amiodarone [Cordarone] 100 mg PO DAILY Aspirin 81 mg PO DAILY busPIRone HCl [Buspar] 5 mg PO BID Levothyroxine Sodium [Synthroid] 175 mcg PO DAILY Furosemide [Lasix] 40 mg PO BID Clopidogrel [Plavix] 75 mg PO DAILY Discontinued lisinopriL [Zestril] 5 mg PO DAILY Metoprolol Succinate [Toprol XL] 50 mg PO DAILY Discharge Medication List Amiodarone [Cordarone] 100 mg PO DAILY 02/02/23 [History] Aspirin 81 mg PO DAILY 02/02/23 [History] Clopidogrel [Plavix] 75 mg PO DAILY 02/02/23 [History] Colchicine [Colcrys] 0.6 mg PO DAILY 02/02/23 [History] Furosemide [Lasix] 40 mg PO BID 02/02/23 [History] Levothyroxine Sodium [Synthroid] 175 mcg PO DAILY 02/02/23 [History] busPIRone HCl [Buspar] 5 mg PO BID 02/02/23 [History] carvediloL [Coreg] 6.25 mg PO BID-W/MEALS #60 tab 02/03/23 [Rx] lisinopriL [Zestril] 10 mg PO BID #60 tab 02/03/23 [Rx] Follow up Appointment(s)/Referral(s): Raymond Hicks MD [Primary Care Provider] - 1 Week Raheem Parry MD [STAFF PHYSICIAN] - 1 Week Patient Instructions/Handouts: Heart Failure (DC), Aortic Stenosis (DC), A-fib (Atrial Fibrillation) (DC) Activity/Diet/Wound Care/Special Instructions: Please see your PCP and reconciliation machine operator. Discharge Disposition: HOME SELF-CARE
[2023-02-03 12:40] VITALS: BMI 32.8
--- NOTE | 2023-02-03 13:39 | P.PN ---
Subjective Progress Note Date: 02/03/23 The patient is 72-year-old male who follows with Dr. Wilson, who presented to the hospital with worsening shortness of breath and associated chest tightness. He was found to be in hypertensive crisis with systolic blood pressures over 200. Blood pressure medications were titrated with better control. Echocardiogram revealed severely reduced LV function at 30-35% with global hypokinesis and severe low flow gradient aortic stenosis. Patient is feeling well resting comfortably in bed. Denies any chest pain with ambulation around the unit. He states his breathing has improved. GENERAL: Well-appearing, well-nourished and in no acute distress. NECK: Supple without JVD or thyromegaly. LUNGS: Breath sounds clear to auscultation bilaterally. Respiration equal and unlabored. No wheezes, rales or rhonchi. HEART: Regular rate and rhythm without murmurs, rubs or gallops. S1 and S2 heard. EXTREMITIES: Normal range of motion, no edema. No clubbing or cyanosis. Peripheral pulses intact and strong. TELEMETRY: Persistent atrial fibrillation, rate controlled LABS: Sodium 130, potassium 4.1, BUN 23 current creatinine 1.11 IMPRESSION: Acute systolic heart failure Hypertensive emergency Severe aortic stenosis Status post watchman device Persistent atrial fibrillation Coronary artery disease with previous CABG and cardiac catheterization PLAN: Increase carvedilol to 6.25 mg twice daily Blood pressure remains well controlled, patient may be discharged later this afternoon Outpatient follow-up with primary [facility] in [place] I am dictating on behalf of Dr Raheem Parry's history/physical and assessment/plan. Objective - Vital Signs Vital signs: Vital Signs Temp 98.3 F 02/03/23 00:00 Pulse 56 L 02/03/23 12:00 Resp 17 02/03/23 08:31 BP 112/60 02/03/23 12:00 Pulse Ox 99 02/03/23 12:00 FiO2 Intake & Output 02/02/23 02/03/23 02/03/23 18:59 06:59 18:59 Intake Total 1020 770 Output Total 1750 400 Balance -730 770 -400 Weight 100.698 kg 100.698 kg Intake: Oral 1020 770 Output: Urine 1750 400 Other: Voiding Method Urinal # Voids 1 - Labs CBC & Chem 7: 02/02/23 06:14 02/03/23 07:23 Labs: Abnormal Lab Results - Last 24 Hours (Table) 02/03/23 Range/Units 07:23 BUN 23 H (9-20) mg/dL
[2023-02-03 14:07] VITALS: BP 126/84
[2023-02-03 15:34] VITALS: PULSE 70
[2023-02-03] MEDS ORDERED: carvediloL 6.25 MG TAB PO SCH (17:30)
== END 2023-02-03 15:29 | disposition home or self-care (01) ==
LOC: EC 23:52 → INTOOBSV 02-02 03:19 → 3SCARD 02-02 03:19 → UNDODISIN 02-03 15:29
PROVIDERS: ADMIT Internal Medicine; ATTEND Internal Medicine
DX: I16.1 Hypertensive emergency (principal); I11.0 Hypertensive heart disease with heart failure; I50.21 Acute systolic (congestive) heart failure; R79.89 Other specified abnormal findings of blood chemistry; E78.5 Hyperlipidemia, unspecified; I25.10 Atherosclerotic heart disease of native coronary artery without angina pectoris; I48.19 Other persistent atrial fibrillation; I35.0 Nonrheumatic aortic (valve) stenosis; I21.A1 Myocardial infarction type 2; R74.01 Elevation of levels of liver transaminase levels; D72.829 Elevated white blood cell count, unspecified; I25.2 Old myocardial infarction; Z95.1 Presence of aortocoronary bypass graft; Z95.810 Presence of automatic (implantable) cardiac defibrillator; Z79.899 Other long term (current) drug therapy; Z79.890 Hormone replacement therapy; Z79.02 Long term (current) use of antithrombotics/antiplatelets; Z79.82 Long term (current) use of aspirin
CPT/HCPCS: 96372 ×2; 96374; 96375; 99285; 36415; 93005; 83880; 80053; 80048; 83605; 83735 ×2; 84484; 85025; 85027; 85610; 85730; 71045; G0378 ×2; C8929; J1940; J1650 ×2; Q9950; 93306

== ENCOUNTER → 2023-08-02 | Outpatient (CLI) | payer MEDICARE ==
[2023-08-02 11:49] VITALS: BP 128/81; PULSE 69; RESP 16; TEMP 97.4
--- NOTE | 2023-08-02 12:19 | P.PN ---
Subjective DATE: 08/02/2023 FOLLOW UP VISIT. Patient with obstructive sleep apnea hypopnea syndrome return to sleep center for follow-up visit. Information from previous visit have been reviewed. Patient is using ASV equipment every night for the whole night, getting PAP supplies in time. Patient developed problems related to dryness in his mouth and nose. [place] sleepiness scale is 4, which is normal. I checked information from PAP unit. ASV unit pressure minimal expiratory pressure 9, maximal expiratory pressure 15, pressure support 5-16, average pressure 20.8/12.1 cm H2O. Usage is 100% for more then 4 hours, average 8.1 hours per night. Leak is 23 l/m, which is in acceptable range. Apnea Hypopnea Index is slightly increased to 8.1. I checked surface of heated humidifier. Heated humidifier does not work well. MEDICATIONS:1. Levothyroxine 175 mcg once a day 2. Carvedilol 6.25 mg once a day 3. Clopidogrel 75 mg once a day 4. Amlodipine 200 mg once a day 5. Lisinopril 10 mg once a day 6. Furosemide 40 mg once a day During physical exam: GENERAL: A pleasant patient without any distress. VITAL SIGNS: Please see below. HEENT: PERRLA, EOMI.low position of soft palate, Mallapati 3 . NECK: Supple. No JVD. LUNGS: Clear to percussion and to auscultation. Good air exchange. No wheezing or rhonchi. HEART: S1, S2 regular. ABDOMEN: Soft and nontender. Slightly obese EXTREMITIES: No clubbing or cyanosis. BOW MAKER: Awake, alert, and oriented x3. No focal deficit. Impressions: 1. Obstructive sleep apnea-hypopnea syndrome. Patient demonstrated great compliance with treatment, benefiting from treatment. 2. Some difficulties to initiate sleep. Sleeps better with trazodone 100 mg at night. 3. Coronary artery disease, status post CABG. 4. Hypertension. 5. Hypothyroidism. 6. History of cardiac arrhythmia. 7. Status post back surgery for herniated disc. 8. Status post nasal surgery for nasal septal deviation. 9. Mild obesity body mass index 34, patient increased weight on 6 pounds comparing with previous visit. Plan: 1. Continue using ASV equipment every night for the whole night. Prescription to fix or replace autoservoventilator, because heated humidifier does not work well. 2. To change air filter at least 1-2 times per month. 3. ASV unit should stay lower then position of the head. 4. Advised patient to remove all remaining water from humidifier canister daily and make it dry after each usage. Refill canister with fresh distilled water before each usage. 5. Sleep hygiene with regular time in bed for at least 8 hours. 6. Precautions related to driving. No driving if feel any sleepiness. 7. I will maintain prescription for PAP supplies including mask, tube, filters. 8. Follow up visit in 1-3 months after patient will get new ASV unit. 9. Watching and losing weight. Thank you very much for allowing me to participate in the management of your patient. Ronnie Dickey MD, PhD, FAASM. Diplomat of [place] [employer], Sleep Medicine Board by [place] [employer] Travel Rn of [facility] [place] Objective - Vital Signs Vital signs: Vital Signs Temp 97.4 F L 08/02/23 11:38 Pulse 69 08/02/23 11:38 Resp 16 08/02/23 11:38 BP 128/81 08/02/23 11:38 Pulse Ox 95 08/02/23 11:38 FiO2 Intake & Output 08/01/23 08/02/23 08/02/23 18:59 06:59 18:59 Weight 102.965 kg
== END | disposition home or self-care (01) ==
LOC: 3 N SLEEP 11:06
PROVIDERS: ATTEND Internal Medicine
DX: G47.33 Obstructive sleep apnea (adult) (pediatric) (principal); G47.31 Primary central sleep apnea; G47.8 Other sleep disorders; I25.10 Atherosclerotic heart disease of native coronary artery without angina pectoris; E03.9 Hypothyroidism, unspecified; I10 Essential (primary) hypertension; E66.9 Obesity, unspecified; F12.90 Cannabis use, unspecified, uncomplicated; Z68.34 Body mass index [BMI] 34.0-34.9, adult; Z79.890 Hormone replacement therapy; Z95.1 Presence of aortocoronary bypass graft; Z99.89 Dependence on other enabling machines and devices; Z79.899 Other long term (current) drug therapy; Z98.890 Other specified postprocedural states; Z86.79 Personal history of other diseases of the circulatory system
CPT/HCPCS: 99212